=== PATIENT | female | born 1970 | race African-American/Black ===

== ENCOUNTER 2016-11-20 20:59 | Emergency (ER) | payer OTHER ==
[~2016-11-20] VITALS: Ht 175.3 cm; Wt 105.2 kg
[~2016-11-20 20:59] MED LIST: ALLERGY MED; BUTALB-APAP-CA1 EACH PO; DIFLUCAN150 MG PO; FLEXERIL PO; HYDROCODONE-AP1 EAC6 PO; NAPROSYN500 MG PO; NOHOMEMEDICATIONS; NORTRIPTYLINE H10 M1 PO; TOPAMAX 25 MG T25 M1 PO; TOPAMAX100 MG PO; TUSSIONEX PENN473 ML PO; ULTRAM 50MG TAB50 MG PO; ZPAK PO
[2016-11-20] MEDS ORDERED: ADIPEX-P37.5 MG PO (21:24)
[2016-11-20 21:29] LABS: URINE BILIRUBIN NEGATIVE (Negative); URINE BLOOD NEGATIVE (Negative); URINE COLOR YELLOW; URINE GLUCOSE-RANDOM* NEGATIVE (Negative); URINE KETONES NEGATIVE (Negative); URINE LEUKOCYTES-REFLEX NEGATIVE (Negative); URINE PROTEIN (DIPSTICK) NEGATIVE (Negative); URINE SPECIFIC GRAVITY 1.025 (1.003-1.035); URINE UROBILINOGEN 0.2 E.U./dl (0.2-1.0)
[2016-11-20 21:46] LABS: HEMATOCRIT 21.4 % (37.0-47.0); MCH 17.3 pg (26.0-34.0); MCHC 31.5 g/dL (28.0-37.0); MCV 55.1 fL (80.0-100.0); PLATELET COUNT 139 thou/uL (150-400); RBC 3.88 mil/uL (4.20-5.00); RDW 19.3 % (10.5-14.5); WBC 7.7 thou/uL (4.0-11.0)
[2016-11-20 21:47] LABS: MANUAL DIFF YES
[2016-11-20 21:52] LABS: CALCIUM 8.8 mg/dL (8.5-10.1); CREATININE 1.1 mg/dL (0.6-1.0); POTASSIUM 3.2 mmol/L (3.5-5.1)
[2016-11-20 21:53] LABS: HEMOGLOBIN 6.7 gm/dL (12.0-15.0)
[2016-11-20 22:16] LABS: ABSOLUTE NEUTROPHILS 5.1 thou/uL (1.4-8.2); METAMYELOCYTES 8 %; MYELOCYTES 6 %; PROMYELOCYTES 1 %; TOTAL CELL COUNT 100
[2016-11-20 22:17] LABS: ANISOCYTOSIS 3+; HYPOCHROMASIA 3+
[2016-11-20 22:18] LABS: MICROCYTES 3+; SCHISTOCYTES 2+
[2016-11-20] MEDS ORDERED: NORCO 5-325 TA1 EACH PO (22:48)
[2016-11-20] MEDS ORDERED: IRON325 PO (22:48)
[2016-11-20 23:17] VITALS: BP 127/81
== END 2016-11-20 23:18 | disposition home or self-care (01) ==
LOC: ER 20:59
PROVIDERS: Emergency Medicine
DX: M54.5 Low back pain (principal); D64.9 Anemia, unspecified; G43.909 Migraine, unspecified, not intractable, without status migrainosus

== ENCOUNTER → 2016-11-25 | Outpatient (CLI) | payer OTHER ==
[~2016-11-25] MED LIST changes: +ADIPEX-P37.5 MG PO; +IRON325 PO; +NORCO 5-325 TA1 EACH PO
[2016-11-25 17:01] LABS: ABSOLUTE RETIC COUNT 0.2761 10^6/uL; HEMATOCRIT 27.8 % (37.0-47.0); MCH 19.9 pg (26.0-34.0); MCHC 32.5 g/dL (28.0-37.0); MCV 61.4 fL (80.0-100.0); OBSERVED RETIC COUNT 6.09 % (0.6-2.6); PLATELET COUNT 139 thou/uL (150-400); RBC 4.53 mil/uL (4.20-5.00); RDW 30.2 % (10.5-14.5); WBC 5.6 thou/uL (4.0-11.0)
[2016-11-25 17:03] LABS: MANUAL DIFF YES
[2016-11-25 17:09] LABS: CREATININE 1.2 mg/dL (0.6-1.0); POTASSIUM 3.7 mmol/L (3.5-5.1)
[2016-11-25 17:13] LABS: ALBUMIN 3.6 g/dL (3.4-5.0); TOTAL BILIRUBIN 0.8 mg/dL (<0.1-1.0); TOTAL PROTEIN 6.9 g/dL (6.4-8.2)
[2016-11-25 17:19] LABS: APTT 28.9 Seconds (24.5-32.8); PROTIME 10.8 Seconds (9.3-11.4)
[2016-11-25 18:22] LABS: ABSOLUTE NEUTROPHILS 3.9 thou/uL (1.4-8.2); ATYPICAL LYMPHS 1 %; METAMYELOCYTES 2 %; MYELOCYTES 2 %; TOTAL CELL COUNT 100
[2016-11-25 18:23] LABS: ANISOCYTOSIS 1+; MICROCYTES 1+
== END ==
LOC: RAD 15:39
DX: M54.89 Other dorsalgia (principal)

== ENCOUNTER → 2016-12-06 | Outpatient (CLI) | payer OTHER ==
[~2016-12-06] MED LIST changes: +FOLIC ACID1 MG PO; +OXYCONTIN10 M1 PO
[2016-12-06 16:07] LABS: ABSOLUTE RETIC COUNT 0.0871 10^6/uL; HEMATOCRIT 28.9 % (37.0-47.0); HEMOGLOBIN 9.2 gm/dL (12.0-15.0); MCH 20.8 pg (26.0-34.0); MCHC 31.9 g/dL (28.0-37.0); MCV 65.2 fL (80.0-100.0); OBSERVED RETIC COUNT 1.97 % (0.6-2.6); PLATELET COUNT 286 thou/uL (150-400); RBC 4.43 mil/uL (4.20-5.00); RDW 31.3 % (10.5-14.5); WBC 4.9 thou/uL (4.0-11.0)
[2016-12-06 16:10] LABS: MANUAL DIFF YES
[2016-12-06 16:26] VITALS: BP 128/84
[2016-12-06 16:28] LABS: ALBUMIN 3.6 g/dL (3.4-5.0); CALCIUM 8.7 mg/dL (8.5-10.1); CREATININE 1.1 mg/dL (0.6-1.0); POTASSIUM 4.2 mmol/L (3.5-5.1); TOTAL BILIRUBIN 0.4 mg/dL (<0.1-1.0); TOTAL PROTEIN 6.7 g/dL (6.4-8.2)
[2016-12-06 16:36] LABS: ABSOLUTE NEUTROPHILS 2.9 thou/uL (1.4-8.2); ANISOCYTOSIS 2+; HYPOCHROMASIA 1+; MICROCYTES 1+; TOTAL CELL COUNT 100
[2016-12-06 17:41] VITALS: BP 137/82
== END ==
LOC: OPONC 13:55
DX: D57.40 Sickle-cell thalassemia without crisis (principal); N92.0 Excessive and frequent menstruation with regular cycle
CPT/HCPCS: 95000

== ENCOUNTER → 2016-12-12 | Outpatient (CLI) | payer OTHER ==
[2016-12-12 10:41] VITALS: BP 130/79
== END ==
LOC: OPONC 06:22
DX: D50.0 Iron deficiency anemia secondary to blood loss (chronic) (principal); D57.40 Sickle-cell thalassemia without crisis
CPT/HCPCS: 95000

== ENCOUNTER → 2016-12-19 | Outpatient (CLI) | payer OTHER ==
[2016-12-19 10:47] VITALS: BP 137/85
[2016-12-19 12:18] VITALS: BP 131/95
== END ==
LOC: OPONC 06:20
DX: D50.9 Iron deficiency anemia, unspecified (principal); N92.0 Excessive and frequent menstruation with regular cycle; D57.40 Sickle-cell thalassemia without crisis
CPT/HCPCS: 95000; 95001

== ENCOUNTER → 2017-04-22 | Outpatient (CLI) | payer OTHER ==
[2017-04-22 11:52] VITALS: BP 142/84
[2017-04-22 14:40] VITALS: BP 145/88
== END ==
LOC: OPONC 04-21 09:53
DX: D50.9 Iron deficiency anemia, unspecified (principal)
CPT/HCPCS: 95000; 95001

== ENCOUNTER → 2017-04-25 | Outpatient (CLI) | payer OTHER ==
[2017-04-25 10:55] VITALS: BP 130/78
[2017-04-25 12:46] VITALS: BP 141/78
== END ==
LOC: OPONC 02:33
DX: D50.9 Iron deficiency anemia, unspecified (principal)
CPT/HCPCS: 95000; 95001

== ENCOUNTER → 2017-10-10 | Outpatient (CLI) | payer OTHER ==
[~2017-10-10] MED LIST changes: +PREDNISONE 20 M20 MG PO
[2017-10-10 14:13] LABS: ABSOLUTE NEUTROPHILS 4.9 thou/uL (1.4-8.2); BASOPHILS 0.5 % (0.0-2.0); EOSINOPHILS 1.7 % (0.0-3.0); HEMATOCRIT 32.9 % (37.0-47.0); HEMOGLOBIN 10.5 gm/dL (12.0-15.0); LYMPHOCYTES 19.4 % (24.0-44.0); MCH 22.5 pg (26.0-34.0); MCHC 31.9 g/dL (28.0-37.0); MCV 70.5 fL (80.0-100.0); MONOCYTES 5.8 % (1.0-8.0); PLATELET COUNT 278 thou/uL (150-400); POLYS 72.6 % (36.0-66.0); RBC 4.66 mil/uL (4.20-5.00); RDW 18.2 % (10.5-14.5); WBC 6.8 thou/uL (4.0-11.0)
[2017-10-10 14:25] LABS: % SATURATION 8 % (20-39); IRON 31 ug/dL (50-170); TIBC 388 ug/dL (250-450)
[2017-10-10 14:45] LABS: ANISOCYTOSIS 2+; PLATELET ESTIMATE NORMAL
[2017-10-10 14:46] LABS: LARGE PLATELETS FEW; MICROCYTES 1+
[2017-10-10 14:47] LABS: HYPOCHROMASIA 1+
[2017-10-10 14:54] LABS: LIPASE 159 U/L (73-393); TROPONIN-I < 0.04 ng/mL (<0.06)
== END ==
LOC: ULTRA 12:25
DX: D50.9 Iron deficiency anemia, unspecified (principal); R10.32 Left lower quadrant pain; R10.31 Right lower quadrant pain

== ENCOUNTER → 2017-10-17 | Outpatient (CLI) | payer OTHER ==
[~2017-10-17] MED LIST changes: +HYDROCHLOROTH12.5 M2 PO; +INDERAL LA 80 M80 M1 PO; +LOSARTAN-HCTZ1 EACH PO; +OXYCODONE-ACET1 EACH PO; +VALIUM5 MG PO
[2017-10-17 11:15] VITALS: BP 126/86
[2017-10-17 12:30] VITALS: BP 138/103
== END ==
LOC: OPONC 11:04
DX: D50.0 Iron deficiency anemia secondary to blood loss (chronic) (principal)
CPT/HCPCS: 95000; 95113

== ENCOUNTER → 2017-10-20 | Outpatient (CLI) | payer OTHER ==
[2017-10-20 08:25] VITALS: BP 125/81
== END ==
LOC: OPONC 01:53
DX: D50.0 Iron deficiency anemia secondary to blood loss (chronic) (principal)
CPT/HCPCS: 95000

== ENCOUNTER → 2017-12-03 | Outpatient (CLI) | payer OTHER ==
--- NOTE | ~2017-12-03 | 2DMMODE ---
[facility] [employer] [place] [address] 2 D/M-MODE ECHOCARDIOGRAM Name: OSCAR CONNER REZA Room #: REG [facility]Jj#: [id number] Admission: 12/03/17 Attend Phys: Iraida Deluca Discharge: Date of : 70 Date of Service: 12/03/17 1603 Report #: [id number] THIS REPORT FOR: //name// APPROVED REPORT Study performed: 12/03/2017 15:13:58 EXAM: Comprehensive 2D, Doppler, and color-flow Echocardiogram Patient Location: Out-Patient BSA: 2.35 HR: 66 bpm Rhythm: NSR Other Information Study Quality: Adequate Indications Chest pain. Hx: CHF 2D Dimensions RVDd: 37.52 mm LVEF(%): 70.19 (>50%) IVSd: 11.33 (7-11mm) LVOT Diam: 21.00 (18-24mm) LVDd: 47.73 mm PWd: 9.53 (7-11mm) Ascending Ao: 32.97 (22-36mm) LVDs: 28.79 (25-40mm) Aortic Root: 31.91 mm Palmer's LVEF: 70.19 % Volumes Left Atrial Volume (Systole) Single Plane 4CH: 52.89 mL Single Plane 2CH: 48.38 mL LA ESV Index: 23.00 mL/m2 Aortic Valve AoV Peak Aubrey.: 1.56 m/s AO Peak Gr.: 9.79 mmHg LVOT Max P.75 mmHg LVOT Max V: 1.56 m/s HESHAM Vmax: 3.46 cm2 Mitral Valve E/A Ratio: 1.5 MV Decel. Time: 240.25 ms MV E Max Aubrey.: 1.02 m/s [facility] [address] [place] [address] 2 D/M-MODE ECHOCARDIOGRAM Name: OSCAR CONNER [facility] Room #: REG [facility].#: [id number] Admission: 12/03/17 Attend Phys: Iraida Deluca Discharge: Date of : 70 Date of Service: 12/03/17 1603 Report #: [id number] MV A Aubrey.: 0.68 m/s MV PHT: 69.67 ms IVRT: 78.43 ms Pulmonary Valve PV Peak Aubrey.: 1.14 m/s PV Peak Gr.: 5.19 mmHg Tricuspid Valve TR Peak Aubrey.: 2.20 m/s RAP Estimate: 5.00 mmHg TR Peak Gr.: 19.44 mmHg PA Pressure: 24.00 mmHg Left Ventricle The left ventricle is normal size. There is normal LV segmental wall motion. There is normal left ventricular wall thickness. Left ventricular systolic function is normal. LVEF is 55-60%. Mild diastolic dysfunction is present (impaired relaxation pattern). Right Ventricle The right ventricle is normal size. The right ventricular systolic function is normal. Atria The left atrium size is normal. The right atrium size is normal. Aortic Valve The aortic valve is normal in structure. Trace aortic regurgitation. There is no aortic valvular stenosis. Mitral Valve The mitral valve is normal in structure. Trace mitral regurgitation. No evidence of mitral valve stenosis. Tricuspid Valve The tricuspid valve is normal in structure. Trace tricuspid regurgitation. Estimated PAP is 25mmHg. Pulmonic Valve The pulmonary valve is normal in structure. Trace pulmonic regurgitation. Great Vessels The aortic root is normal in size. The ascending aorta is normal in size. IVC is normal in size and collapses >50% with [facility] [address] [place] [address] 2 D/M-MODE ECHOCARDIOGRAM Name: UBALDOOSCAR [facility] Room #: REG Princess#: [id number] Admission: 12/03/17 Attend Phys: Iraida Deluca Discharge: Date of : 70 Date of Service: 12/03/17 1603 Report #: [id number] inspiration. Pericardium There is no pericardial effusion. <Conclusion> The left ventricle is normal size. LVEF is 55-60%. The aortic valve is normal in structure. Trace aortic regurgitation. The mitral valve is normal in structure. Trace mitral regurgitation. The tricuspid valve is normal in structure. Trace tricuspid regurgitation. Estimated PAP is 25mmHg. The pulmonary valve is normal in structure. Trace pulmonic regurgitation. There is no pericardial effusion. <ELECTRONICALLY SIGNED> By: Nathan Brock MD 12/03/17 1603 160 02 Nathan Brock MD /INF
== END ==
LOC: CV 12:23
DX: R07.9 Chest pain, unspecified (principal); I50.9 Heart failure, unspecified

== ENCOUNTER → 2018-06-23 | Outpatient (CLI) | payer OTHER | LOC: MRI 07:21 | DX: M51.37 Other intervertebral disc degeneration, lumbosacral region (principal); M51.27 Other intervertebral disc displacement, lumbosacral region; M12.88 Other specific arthropathies, not elsewhere classified, other specified site; M48.07 Spinal stenosis, lumbosacral region ==

== ENCOUNTER → 2020-02-09 | Outpatient (CLI) | payer OTHER ==
[~2020-02-09] VITALS: Ht 175.3 cm; Wt 93.0 kg
[~2020-02-09] MED LIST changes: +LOSARTAN-HCTZ1 EAC3 PO
--- NOTE | ~2020-02-09 | HPC ---
[facility] [address] [place] [address] PAIN MANAGEMENT CONSULTATION Name: OSCAR CONNER Room #: REG AMANDO Kumari.#: [id number] Admission: 02/09/20 Attend Phys: Delroy Summers DO Discharge: Date of : 70 Report #: [id number] THIS REPORT FOR: cc: Leslye Rosado MD,Delroy Barksdale MD, DO ~ CC: Delroy Rosado DATE OF SERVICE: 02/09/2020 REFERRING PHYSICIAN: Leslye Rosado M.D. CHIEF COMPLAINT: Low back pain, right lower extremity pain with paresthesias. HISTORY OF PRESENT ILLNESS: As you know, the patient is a 49-year-old female who reports longstanding history of low back pain that just recently has changed from low back symptoms exclusively to low back pain, right lower extremity pain. The patient indicates her pain began as far back as 2014. She denies specific injury or trauma that may have led to symptom development. The patient does report that she was morbidly obese prior to a gastric sleeve being placed in September where she has now lost 55 pounds. Prior to this, she was experiencing continual back pain of recent. She began to experience low back pain with radiation down the right leg. She was discussing her case with her primary care physician who referred the patient to our clinic. The patient indicates today her pain is continuous, constant, rhythmic and transient in its presentation. She describes the pain as shooting, aching, throbbing, sharp, stabbing, numbness and tingling. She places current pain score at 7/10, daily average at 7-10/10, worst pain has been is 10/10. The patient states the pain is exacerbated with getting up and walking, improves with nothing to date. The patient indicates that she has had physical therapy in the past, but this was for other conditions and did not address her low back pain. She states she has tried [id number] medications in the form of anti-inflammatories. She has also been provided Percocet and hydrocodone, which provided only transient pain improvement. She indicates she has not undergone interventional treatments, nor she sought chiropractic manipulation, acupuncture therapy or myofascial release. She has been referred to our service to discuss treatment options for suspected lumbar radiculopathy. PAST MEDICAL HISTORY: 1. Anemia. 2. Hypertension. PAST SURGICAL HISTORY: [facility] [address] [facility] [place] [address] PAIN MANAGEMENT CONSULTATION Name: OSCAR CONNER [facility] Room #: REG AMANDO KumariJj#: [id number] Admission: 02/09/20 Attend Phys: Delroy Summers DO Discharge: Date of : 70 Report #: [id number] 1. section x 2. 2. Gastric sleeve. SOCIAL HISTORY: The patient denies tobacco, IV or illicit drug use. She admits to 1 alcoholic beverage per week. She is employed as a teacher. She is working, not receiving workmen's compensation nor is she trying to obtain discrete benefits. She is not in litigation in regards to pain. She is accompanied by a family member present in room today. REVIEW OF SYSTEMS: Positive for weight change, secondary to gastric sleeve, headaches, nausea, vomiting, constipation, low back pain, right lower extremity pain with paresthesias and anemia. All other review of systems negative per 12-point review of systems other than those listed in history of present illness. Pain impact score 63 of 70 indicating severe interference of daily activities secondary to pain. ALLERGIES: No known drug allergies. CURRENT MEDICATIONS: Losartan/hydrochlorothiazide 100/25 mg dose 1 tab per day. IMAGING: MRI lumbar spine obtained 06/23/2018 shows T12-L1, L1-L2, L2-L3 and L3-L4 unremarkable. L4-L5 shows mild disk change with hypertrophic changes resulting in mild bilateral recess narrowing, left greater than right. No significant nerve root effacement is present in the central canal nor neural foramen. L5-S1 shows mild disk space loss, small central disk protrusion. This does not cause any narrowing of the thecal sac, mild hypertrophic facet degenerative changes without neural foraminal stenosis. There is no new imaging, x-ray or MRI to review this 06/23/2018 MRI. PHYSICAL EXAMINATION: VITAL SIGNS: Blood pressure 117/83, pulse 60, respiratory rate 16 and unlabored. The patient is 100% on room air. Height 5 feet 9 inches tall, weight 205 pounds, BMI calculated 30.3. GENERAL: Well-developed, well-nourished, well-hydrated 49-year-old female, appears her stated age. She is in no acute distress, awake, alert and oriented x 3. Current pain score 7/10. HEENT: Normocephalic, atraumatic. Pupils equal, round and reactive. NEUROLOGIC: Speech fluent. The patient deemed a good historian. LUNGS: Appear clear. There is no audible wheezing or rhonchi. No cough. She is able to complete sentences without difficulty. CARDIOVASCULAR: Regular. No appreciable gallop or rub. ABDOMEN: Soft, nontender. Bowel sounds are present. EXTREMITIES: Show no clubbing, no noted cyanosis. No noted edema. MUSCULOSKELETAL: Lower extremity strength appears equal and symmetrical 5/5, [facility] [address] [place] [address] PAIN MANAGEMENT CONSULTATION Name: OSCAR CONNER Room #: REG AMANDO Quoc.#: [id number] Admission: 02/09/20 Attend Phys: Delroy Summers DO Discharge: Date of : 70 Report #: [id number] intact to light touch from L1 through S2 dermatomes. Seated straight leg raising negative. Supine straight leg raising mildly positive on the right, negative left. Ankle clonus negative. Babinski is negative. Stance is slightly forward flexed the lumbar spine. Full rack stance causes increase in axial back pain. Gait appears normal. Lumbar provocation testing is with slight increase in axial back pain. ASSESSMENT: 1. Possible lumbar radiculopathy. 2. Mildly displaced intervertebral disks at L4-L5 and L5-S1. 3. Facet arthropathy of the lumbar spine. 4. Chronic intractable pain. PLAN: 1. Based on today's physical exam and the history the patient has provided, the description the patient uses in regards to pain as well as the location of symptoms, likely source of the patient's pain would be a lumbar radiculopathy. We have reviewed with the patient the MRI imaging from 2018, which shows only mild changes at the L4-L5 and L5-S1 level without any specific lateralizing feature consistent with right lower extremity radiculopathy. The patient does report that this is a relatively new set of symptoms, it does appear she has some facet arthropathy and this is only mild in nature based on the 2018 information and would not be necessary to undergo any type of treatment, but would be best treated conservatively. The fact the patient is experiencing symptoms radiating down the right leg in what appears to be in L5 distribution would be concerning for changes at the L4-L5 or L5-S1 level. We have discussed this with the patient today. The following was discussed with the treatment options for lumbar radiculopathy that we would propose for this patient. We discussed physical therapy, stretching exercises and core strengthening as a treatment option. This is a very conservative treatment and would provide the patient with good benefit from her axial back pain and may improve the suspected lumbar radiculopathy she is experiencing. We discussed medication management suggestions including nortriptyline, amitriptyline, Cymbalta, Lyrica and gabapentin to assist for the lumbar radicular symptoms. From the mild facet arthropathy changes noted on the imaging study, we would recommend just a nonsteroidal anti-inflammatory on a consistent basis such as meloxicam. We discussed lumbar epidural injection under fluoroscopic guidance to address symptoms radiating down the right leg. We also discussed spinal cord stimulator as an option for treatment and surgical decompression if necessary. After reviewing the risks and benefits of all proposed treatment options, the patient chose to begin with the lumbar epidural injection under fluoroscopic guidance. 2. The patient was advised that due to third democrat payer restrictions, authorization would have to be obtained before the patient could undergo a lumbar epidural injection. Authorization could take anywhere from 4-7 working days. We will begin this process immediately and have the patient return to [address] [address] PAIN MANAGEMENT CONSULTATION Name: OSCAR CONNER REZA Room #: LEONARDO Sánchez#: [id number] Admission: 02/09/20 Attend Phys: Delroy Summers DO Discharge: Date of : 70 Report #: [id number] undergo the first in a series of epidural injections once this authorization has been completed. We will keep the patient apprised of her progress for this authorization and have her return as quickly as possible to undergo the procedure proposed today. 3. No medication changes made at today's visit. The patient will continue current medical therapy as previously prescribed. 4. We will see the patient back in followup visit for the first in a series of lumbar epidural injections once this authorization has been obtained. 5. We wish to thank Dr. Leslye Rosado for the opportunity to see this patient in consultation. We will keep you apprised of response to treatment as we address suspected lumbar radiculopathy involving the low back and right lower extremity. Again, we wish to thank you for the opportunity to see this patient in consultation. By: 1621 [id number] Delroy Summers DO /connie
[2020-02-09 13:43] VITALS: BP 117/83
--- NOTE | 2020-02-09 14:22 | NUR ---
Pain Clinic Assessment: 1. History of Osteoarthritis: BACK History of Rheumatoid Arthritis: Not Applicable 2. Height: 5 ft. 9 in. 175.3 cm. Weight: 205.0 lb. oz. 92.988 kg. Patient's BMI: 30.3 3. Vital Signs: BP: 117/83 Pulse: 60 Resp: 16 Temp: 02 Sat: 100 ECG Mon: 4. Pain Intensity: 7 5. Fall Risk: Dizziness: N Needs help standing or walking: N Fallen in the last 3 months: N Fall risk comments: 6. Patient on Blood Thinner: None 7. History of Hypertension: Y 8. Opioid Therapy greater than 6 weeks: N Opiate Contract Signed: 9. Risk Assessment Tool Provided: LOW RISK 2/3 10. Functional Assessment Tool: 63/70 11. Recreational Drug Use: Never Drug Type: Tobacco Use: Never Smoker Tobacco Type: Amount or Packs/day: How Many Years: Alcohol Use: Yes Frequency: Weekly Quant: 1
== END ==
LOC: PAIN 12-15 06:45
PROVIDERS: ATTEND Anesthesiology Pain Medicine
DX: M51.27 Other intervertebral disc displacement, lumbosacral region (principal); M47.816 Spondylosis without myelopathy or radiculopathy, lumbar region; M79.604 Pain in right leg; M79.605 Pain in left leg; R20.2 Paresthesia of skin; G89.29 Other chronic pain; Z79.899 Other long term (current) drug therapy

== ENCOUNTER 2020-03-13 10:21 | Emergency (ER) | payer OTHER ==
[~2020-03-13] VITALS: Ht 175.3 cm; Wt 92.1 kg
[2020-03-13] MEDS ORDERED: PROTONIX 20 MG20 MG PO (10:33)
[2020-03-13 10:56] LABS: ABSOLUTE NEUTROPHILS 3.1 thou/uL (1.4-8.2); BASOPHILS 0.8 % (0.0-2.0); HEMATOCRIT 40.3 % (37.0-47.0); HEMOGLOBIN 13.1 gm/dL (12.0-15.0); LYMPHOCYTES 23.7 % (24.0-44.0); MCH 25.2 pg (26.0-34.0); MCHC 32.6 g/dL (28.0-37.0); MCV 77.5 fL (80.0-100.0); MONOCYTES 5.8 % (1.0-8.0); PLATELET COUNT 173 thou/uL (150-400); POLYS 67.7 % (36.0-66.0); WBC 4.6 thou/uL (4.0-11.0)
[2020-03-13 10:59] LABS: URINE BILIRUBIN NEGATIVE (Negative); URINE BLOOD TRACE (Negative); URINE CLARITY CLEAR; URINE COLOR YELLOW; URINE GLUCOSE-RANDOM* NEGATIVE (Negative); URINE KETONES NEGATIVE (Negative); URINE LEUKOCYTES-REFLEX NEGATIVE (Negative); URINE NITRITE-REFLEX NEGATIVE (Negative); URINE PROTEIN (DIPSTICK) NEGATIVE (Negative); URINE SPECIFIC GRAVITY 1.015 (1.005-1.035); URINE UROBILINOGEN 0.2 E.U./dl (0.2-1.0)
[2020-03-13 11:00] LABS: CALCIUM 9.7 mg/dL (8.5-10.1); CREATININE 1.1 mg/dL (0.6-1.0); POTASSIUM 3.4 mmol/L (3.5-5.1)
[2020-03-13 11:07] LABS: TOTAL BILIRUBIN 0.7 mg/dL (0.2-1.0); TOTAL PROTEIN 7.8 g/dL (6.4-8.2)
[2020-03-13 11:49] LABS: MAGNESIUM 1.9 mg/dL (1.8-2.4); PHOSPHORUS 3.9 mg/dL (2.5-4.9); TROPONIN-I <0.06 ng/mL (<0.06)
[2020-03-13] MEDS ORDERED: PREDNISONE 20 M20 MG PO (12:17)
[2020-03-13] MEDS ORDERED: TRAMADOL 50 MG50 MG PO (12:17)
[2020-03-13] MEDS ORDERED: NORFLEX100 MG PO (12:17)
[2020-03-13] MEDS ORDERED: MECLIZINE HCL25 M1 PO (12:43)
[2020-03-13 12:49] VITALS: BP 121/85
[2020-03-13 14:01] LABS: LARGE PLATELETS OCCASIONAL
--- NOTE | 2020-03-14 08:23 | EKG ---
[facility] [place] [address] ELECTROCARDIOGRAM REPORT Name: OSCAR CONNER Room #: DEP [facility].#: [id number] Admission: 03/13/20 Attend Phys: Discharge: 03/13/20 Date of : 70 Report #: [id number] THIS REPORT FOR: cc: Leslye Rosado MD, Karla L. 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[facility] : 1970 Requested By: Kirt Feliz Order Number: [id number] MD: Ephraim Gregorio Measurements Intervals [place] Rate: 53 P: 48 CO: 185 QRS: -23 QRSD: 98 T: 26 QT: 433 QTc: 407 Interpretive Statements Sinus rhythm Borderline left axis deviation Poor R wave progression Compared to ECG 06/14/2017 08:13:45 No significant change was found Electronically Signed On 03-14-2020 8:22:55 CDT by Ephraim Gregorio [email or web address] <ELECTRONICALLY SIGNED> By: Ephraim Gregorio MD, [facility] 03/14/20 0822 1040 1040 Ephraim Gregorio MD, [facility] /EPI
== END 2020-03-13 12:49 | disposition home or self-care (01) ==
LOC: ER 10:21
PROVIDERS: Emergency Medicine
DX: D50.9 Iron deficiency anemia, unspecified (principal); R42 Dizziness and giddiness; G44.209 Tension-type headache, unspecified, not intractable; M54.5 Low back pain; M26.622 Arthralgia of left temporomandibular joint; R07.89 Other chest pain; Z98.84 Bariatric surgery status; G43.909 Migraine, unspecified, not intractable, without status migrainosus; Z98.890 Other specified postprocedural states; Z79.899 Other long term (current) drug therapy

== ENCOUNTER → 2020-05-02 | Outpatient (CLI) | payer OTHER ==
[~2020-05-02] VITALS: Ht 175.3 cm; Wt 92.9 kg
[~2020-05-02] MED LIST changes: +MECLIZINE HCL25 M1 PO; +NORFLEX100 MG PO; +PROTONIX 20 MG20 MG PO; +TRAMADOL 50 MG50 MG PO
[2020-05-02 09:43] VITALS: BP 122/92
--- NOTE | 2020-05-02 10:04 | NUR ---
Pain Clinic Assessment: 1. History of Osteoarthritis: BACK History of Rheumatoid Arthritis: Not Applicable 2. Height: 5 ft. 9 in. 175.3 cm. Weight: 204.8 lb. oz. 92.897 kg. Patient's BMI: 30.2 3. Vital Signs: BP: 122/92 Pulse: 56 Resp: 16 Temp: 02 Sat: 100 ECG Mon: 4. Pain Intensity: 7 5. Fall Risk: Dizziness: N Needs help standing or walking: N Fallen in the last 3 months: N Fall risk comments: 6. Patient on Blood Thinner: None 7. History of Hypertension: Y 8. Opioid Therapy greater than 6 weeks: N Opiate Contract Signed: 9. Risk Assessment Tool Provided: LOW RISK 2 10. Functional Assessment Tool: 63/70 11. Recreational Drug Use: Never Drug Type: Tobacco Use: Never Smoker Tobacco Type: Amount or Packs/day: How Many Years: Alcohol Use: No Frequency: Quant:
--- NOTE | 2020-05-02 10:04 | NUR ---
Answering YES to this query will charge for the Pneumococcal Vaccine. Please answer YES ONLY if administering vaccine at this time.
--- NOTE | 2020-05-02 16:14 | HPC ---
[facility] [place] [address] PAIN MANAGEMENT CONSULTATION Name: OSCAR CONNER Room #: REG AMANDO Princess#: [id number] Admission: 05/02/20 Attend Phys: Delroy Summers DO Discharge: Date of : 70 Report #: [id number] CC: Delroy Rosado MD DATE OF SERVICE: 05/02/2020 CHIEF COMPLAINT: Low back pain, right lower extremity pain with paresthesias. HISTORY OF PRESENT ILLNESS: As you know, the patient is a pleasant 49-year-old female with longstanding history of low back pain and right lower extremity pain with paresthesias. The patient reports pain as far back as 2014. We saw the patient in consultation per the request of Dr. Leslye Rosado on 02/09/2020, where we discussed treatment options for lumbar radiculopathy. These treatment options included physical therapy with stretching exercises with a concerted effort at weight loss. We discussed medication management utilizing neuropathic pain medication such as amitriptyline, nortriptyline, Cymbalta, Lyrica or gabapentin. We discussed lumbar epidural injection for which the patient was referred to our clinic. We also discussed surgical options with the patient, though given the lack of significant findings in the lumbar region, we would not recommend those options of treatment. After reviewing the risks and benefits of all proposed treatment options, the patient chose to consider each of the options carefully and then call us when she was ready to discuss future treatment. She returns today in followup visit on 05/02/2020 to undergo lumbar epidural injection under fluoroscopic guidance. She is indicating a pain level today of 7/10. She returns today stating no new injury, no new trauma or any changes in medical history that may have led to continuation of her ongoing pain. ALLERGIES: No known drug allergies. CURRENT MEDICATIONS: Tramadol, pantoprazole, losartan, hydrochlorothiazide. SOCIAL HISTORY: The patient denies tobacco, IV or illicit drug use. Admits to 1 alcoholic beverage per week. 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 IMAGING: No new imaging available. PHYSICAL EXAMINATION: VITAL SIGNS: Blood pressure 122/92, pulse 56, respiratory rate 16 and unlabored. The patient is 100% on room air. Height 5 feet 9 inches tall, weight 204.8 pounds, BMI calculated 30.2. GENERAL: Well-developed, well-nourished, well-hydrated, 49-year-old female appearing stated age, pain is rated today at 7/10. HEENT: Normocephalic, atraumatic. Pupils equal, round and reactive. EXTREMITIES: Show no clubbing, no cyanosis. No appreciable edema. MUSCULOSKELETAL: Lower extremity strength equal and symmetrical 5/5, intact to light touch from L1 through S2 dermatomes. Seated straight leg raising negative. Supine straight leg raising shows mildly positive on the right, negative left. Ankle clonus negative. Babinski is negative. Gait is normal. ASSESSMENT: 1. Possible lumbar radiculopathy. 2. Mildly displaced intervertebral disks at L4-L5 and L5-S1. 3. Facet arthropathy of the lumbar spine. 4. Chronic intractable pain. PLAN: 1. The patient returns today in followup visit, now requesting to undergo lumbar epidural injection under fluoroscopic guidance. She has reviewed the risks and the benefits of all proposed treatment options and chose to undergo the procedure today. The patient was advised the risks of the lumbar epidural injection, which include, but are not necessarily limited to bleeding, bruising, infection, worsening pain, no relief of pain, also risk of temporary or permanent muscle weakness, temporary or permanent nerve damage, possible paralysis, post-dural puncture headache and . The patient states understood and wished to proceed. 2. No medication changes made at today's visit. The patient will continue current medical therapy as prior prescribed. 3. We will see the patient back in followup visit on an as needed basis for possible next in the series of lumbar epidural injections. PROCEDURE NOTE: DESCRIPTION OF PROCEDURE: L5-S1 right parasagittal epidural steroid injection under fluoroscopic guidance. This is the first procedure of the first series that the patient is undergoing. After obtaining written consent, the patient was taken back to the fluoroscopy suite, placed in a prone position with pillow under the abdomen to decrease lumbar lordosis. The skin overlying the lumbosacral area was then prepped and draped in aseptic fashion. The L5-S1 vertebral interspace was then identified by AP fluoroscopy. The skin and subcutaneous tissue overlying the target site of injection was anesthetized with 3 mL 1% lidocaine. A 20-gauge 3-1/2 inch Tuohy needle was then advanced under fluoroscopic guidance towards the epidural space using a right parasagittal approach. The epidural space was identified using loss of resistance to air technique. After negative aspiration for heme or cerebrospinal fluid, a total of 1 mL of Omnipaque was injected. A lumbar epidurogram was confirmed using both AP and lateral fluoroscopy. After negative aspiration for heme or cerebrospinal fluid, 5 mL of solution containing 2 mL of 40 mg per mL, 80 mg total triamcinolone along with 3 mL lidocaine 1% was injected in increments. Contrast spread was noted in post epidural space. The needle was then retracted approximately half way and needle tract flushed with 1 mL of 1% lidocaine. Needle was then removed. There were no apparent sensory or motor deficits in the lower extremity following the procedure. A sterile bandage was placed over the injection site. The heart rate, pulse, oximetry and blood pressure were continuously monitored after the procedure. There were no apparent complications. The patient tolerated the procedure well and was carefully escorted to the recovery room in stable condition. There were no apparent complications. After meeting discharge criteria, the patient was then discharged home. <ELECTRONICALLY SIGNED> By: Delroy Summers DO 05/02/20 1614 1309 1513 Delroy Summers DO /nt
== END | disposition home or self-care (01) ==
LOC: PAIN 06:53
PROVIDERS: ATTEND Anesthesiology Pain Medicine
DX: M51.26 Other intervertebral disc displacement, lumbar region (principal); M47.896 Other spondylosis, lumbar region; G89.29 Other chronic pain; Z98.890 Other specified postprocedural states; Z79.899 Other long term (current) drug therapy

== ENCOUNTER → 2020-06-06 | Outpatient (CLI) | payer OTHER ==
[~2020-06-06] VITALS: Ht 175.3 cm; Wt 92.5 kg
[~2020-06-06] MED LIST changes: +LYRICA 75 MG CA75 MG PO
[2020-06-06 12:33] VITALS: BP 1125/86
--- NOTE | 2020-06-06 12:40 | NUR ---
Pain Clinic Assessment: 1. History of Osteoarthritis: BACK History of Rheumatoid Arthritis: Not Applicable 2. Height: 5 ft. 9 in. 175.3 cm. Weight: 204.0 lb. oz. 92.534 kg. Patient's BMI: 30.1 3. Vital Signs: BP: 1125/86 Pulse: 69 Resp: 16 Temp: 02 Sat: 100 ECG Mon: 4. Pain Intensity: 6 5. Fall Risk: Dizziness: Y Needs help standing or walking: N Fallen in the last 3 months: N Fall risk comments: 6. Patient on Blood Thinner: None 7. History of Hypertension: Y 8. Opioid Therapy greater than 6 weeks: N Opiate Contract Signed: 9. Risk Assessment Tool Provided: LOW RISK 2 10. Functional Assessment Tool: 63/70 11. Recreational Drug Use: Never Drug Type: Tobacco Use: Never Smoker Tobacco Type: Amount or Packs/day: How Many Years: Alcohol Use: No Frequency: Quant:
--- NOTE | 2020-06-07 12:16 | HPC ---
[facility] [place] [address] PAIN MANAGEMENT CONSULTATION Name: OSCAR CONNER Room #: REG AMANDO KhouryJjAdrianaJj#: [id number] Admission: 06/06/20 Attend Phys: Delroy Summers DO Discharge: Date of : 70 Report #: [id number] THIS REPORT FOR: cc: Leslye Rosado MD, Karla L. MD Johnson, James E. DO ~ DATE OF SERVICE: 06/06/2020 CHIEF COMPLAINT: Low back pain, right lower extremity pain with paresthesias. HISTORY OF PRESENT ILLNESS: As you know, the patient is a very pleasant 49-year-old female with longstanding history of low back pain, right lower extremity pain with paresthesias. She reports pain as far back as 2014. She was seen in consultation per the request of Dr. Leslye Rosado on 02/09/2020 where we discussed treatment options for lumbar radiculopathy. She underwent a lumbar epidural injection at the followup visit of 05/02/2020. She reports about a 60% improvement in overall pain lasting through about 2-week timeframe. She was able to go about activities of daily living without significant pain interference. She is pleased with response to the injection, returning today to undergo the next in the series. She is placing her current pain score 6/10. She is denying any changes in medical management since our last visit. There has been no new injury or trauma that has led to recurrence of symptoms. She returns today for second in series of epidural injections. ALLERGIES: No known drug allergies. CURRENT MEDICATIONS: Tramadol, pantoprazole, losartan, hydrochlorothiazide. SOCIAL HISTORY: The patient denies tobacco, IV or illicit drug use. Admits to 1 alcoholic beverage per week. She is employed as a teacher, working, not receiving workmen's compensation. She is accompanied by her daughter present in room today. IMAGING: No new imaging available. PHYSICAL EXAMINATION: VITAL SIGNS: Blood pressure 112/86, pulse is 69, respiratory rate 16 and unlabored. The patient is 100% on room air. Height 5 feet 9 inches tall, weight 209 pounds, BMI calculated at 30.1. GENERAL: Well-developed, well-nourished, well-hydrated 49-year-old female appearing stated age, pain is rated today around 6/10. HEENT: Normocephalic, atraumatic. Pupils equal, round and reactive. Speech fluent. The patient is wearing a mask in compliance with COVID-19 regulations. EXTREMITIES: Show no clubbing, no cyanosis, and no edema. MUSCULOSKELETAL: Lower extremity strength appears symmetrical 5/5[place] [address] PAIN MANAGEMENT CONSULTATION Name: OSCAR CONNER [facility] Room #: REG AMANDO Sánchez#: [id number] Admission: 06/06/20 Attend Phys: Delroy Summers DO Discharge: Date of : 70 Report #: [id number] intact to light touch from L1 through S2 dermatomes. Seated straight leg raising negative. Supine straight leg raising mildly positive again on the right side, negative left. Ankle clonus negative. Gait appears only slightly forward flexed at the lumbar spine, actual gait normal and tandem walk is normal. ASSESSMENT: 1. Mild lumbar radiculopathy. 2. Mild displaced intervertebral disks at L4-L5 and L5-S1. 3. Facet arthropathy of the lumbar spine. 4. Chronic intractable pain. PLAN: 1. The patient returns today in followup visit having noted about a 60% improvement in overall pain with the epidural injection provided at last visit. Unfortunately, the injection only gave little less than 2 weeks of improvement in symptoms. She was able to go about the majority of activities of daily living without significant pain interference and actually does note that she has improvement even now from the epidural injection. She has returned today requesting next in the series of epidural injections. We have obtained authorization for the patient to undergo the procedure today. She has been advised risks and benefits, states understood and wished to proceed. 2. We will start the patient on Lyrica for neuropathic pain control. She has been on gabapentin in the past and apparently failed, but this would appear to be due to subtherapeutic dosing. There were no noted side effects, but also no noted analgesic effects. I had to start the patient on Lyrica 75 mg dose. She will start 1 tab p.o. at bedtime for 5 nights, increase to 2 tabs p.o. at bedtime for 5 nights. If no improvement in symptoms, no side effects of sleepiness, disorientation or confusion, then increase to 1 tab in the morning, 2 tablets at night for 5 more days. If again no improvement in symptoms, no side effects, then escalate to 150 twice a day. The patient was given #90 tablets to begin the titration of the Lyrica. If she has questions or concerns, contact our clinic. Prescription sent via e-scribe to local pharmacy. 3. We plan to see the patient back in followup visit on an as needed basis for the third in the series of lumbar epidural injections. We are hopeful the patient will see good and prolonged benefit with the injection today. This in conjunction with medication management should provide improved analgesic therapy. PROCEDURE NOTE DESCRIPTION OF PROCEDURE: L5-S1 right paramedian epidural steroid injection under fluoroscopic guidance. This is the second procedure of the first series that the patient is undergoing. [facility] [address] [place] [address] PAIN MANAGEMENT CONSULTATION Name: OSCAR CONNER REZA Room #: REG CLMission Bernal CampusJennifer.#: [id number] Admission: 06/06/20 Attend Phys: Delroy Summers DO Discharge: Date of : 70 Report #: [id number] After obtaining written consent, the patient was taken back to the fluoroscopy suite, placed in a prone position with pillow under the abdomen to decrease lumbar lordosis. The skin overlying the lumbosacral area was then prepped and draped in aseptic fashion. The L5-S1 vertebral interspace was then identified by AP fluoroscopy. The skin and subcutaneous tissue overlying the target site of injection was anesthetized with 3 mL 1% lidocaine. A 20-guage 3-1/2 inch Tuohy needle was then advanced under fluoroscopic guidance towards the epidural space using a right paramedian approach. The epidural space was identified using loss of resistance to air technique. After negative aspiration for heme or cerebrospinal fluid, a total of 1 mL of Omnipaque was injected. A lumbar epidurogram was confirmed using both AP and lateral fluoroscopy. After negative aspiration for heme or cerebrospinal fluid, 5 mL of solution containing 2 mL 40 mg per mL, 80 mg total triamcinolone along with 3 mL of lidocaine 1% was injected in increments. Contrast spread was noted from posterior epidural space. The needle was then retracted approximately half way and needle tract flushed with 1 mL of 1% lidocaine. Needle was then removed. There were no apparent sensory or motor deficits in the lower extremity following the procedure. A sterile bandage was placed over the injection site. The heart rate, pulse, oximetry and blood pressure were continuously monitored after the procedure. There were no apparent complications. The patient tolerated the procedure well and was carefully escorted to the recovery room in stable condition. There were no apparent complications. After meeting discharge criteria, the patient was then discharged home. <ELECTRONICALLY SIGNED> By: Delroy Summers DO 06/07/20 1216 [id number] [id number] Delroy Summers DO /nt
== END | disposition home or self-care (01) ==
LOC: PAIN 06:47
PROVIDERS: ATTEND Anesthesiology Pain Medicine
DX: M51.16 Intervertebral disc disorders with radiculopathy, lumbar region (principal); M47.26 Other spondylosis with radiculopathy, lumbar region; G89.29 Other chronic pain; Z98.890 Other specified postprocedural states; Z79.899 Other long term (current) drug therapy

== ENCOUNTER → 2020-10-11 | Outpatient (CLI) | payer OTHER ==
[~2020-10-11] VITALS: Ht 175.3 cm; Wt 93.0 kg
[~2020-10-11] MED LIST changes: +EXCEDRIN CAPLE1 EACH PO
[2020-10-11 08:10] VITALS: BP 133/86
--- NOTE | 2020-10-11 08:14 | NUR ---
Pain Clinic Assessment: 1. History of Osteoarthritis: BACK History of Rheumatoid Arthritis: Not Applicable 2. Height: 5 ft. 9 in. 175.3 cm. Weight: 205.0 lb. oz. 92.988 kg. Patient's BMI: 30.3 3. Vital Signs: BP: 133/86 Pulse: 62 Resp: 16 Temp: 02 Sat: 99 ECG Mon: 4. Pain Intensity: 7 5. Fall Risk: Dizziness: N Needs help standing or walking: N Fallen in the last 3 months: N Fall risk comments: 6. Patient on Blood Thinner: None 7. History of Hypertension: Y 8. Opioid Therapy greater than 6 weeks: N Opiate Contract Signed: 9. Risk Assessment Tool Provided: LOW RISK 2 10. Functional Assessment Tool: 63/70 11. Recreational Drug Use: Never Drug Type: Tobacco Use: Never Smoker Tobacco Type: Amount or Packs/day: How Many Years: Alcohol Use: No Frequency: Quant:
--- NOTE | 2020-10-11 11:25 | HPC ---
[facility] [place] [address] PAIN MANAGEMENT CONSULTATION Name: OSCAR CONNER Room #: REG AMANDO BruceAdrianaJj#: [id number] Admission: 10/11/20 Attend Phys: Delroy Summers DO Discharge: Date of : 70 Report #: [id number] THIS REPORT FOR: cc: Leslye Rosado MD, Karla L. MD Johnson, James E. DO ~ DATE OF SERVICE: 10/11/2020 CHIEF COMPLAINT: Low back pain, right lower extremity pain with paresthesias. HISTORY OF PRESENT ILLNESS: As you know, the patient is a very pleasant 50-year-old female with longstanding history of low back pain, right lower extremity pain with paresthesias. She reports pain as far back as 2014. We saw the patient in consultation per the request of Dr. Leslye Rosado on 02/09/2020 diagnosed with a possible lumbar radiculopathy, facet arthropathy and mildly displaced lumbar intervertebral disk at 2 levels. This was based on imaging studies obtained in 2018. She underwent a lumbar epidural injection under fluoroscopic guidance at our return visit of 05/02/2020 for which she reported improvement in symptoms. She underwent a second epidural injection on 06/06/2020 where she reports that her pain intensified. She states she received no benefit with this procedure. She is now placing pain score 7/10. She returns today in followup visit to discuss treatment options. She does not wish to undergo further injections as her symptoms reportedly were worsened by the injection in June. She denied any new injury, trauma or any changes in medical history since our last visit. ALLERGIES: No known drug allergies. CURRENT MEDICATIONS: [place]-3 fish oil 1 tab per day, allopurinol 100 mg once a day, pregabalin 75 mg twice a day (not being taking currently), oxycodone/acetaminophen 10/325 one tab every 8 hours p.r.n. for pain, meloxicam 7.5 mg b.i.d. SOCIAL HISTORY: The patient reports she is a nonsmoker. Denies IV or illicit drug use. Admits to 1 alcoholic beverage per week. 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 She is accompanied by her present in room today. IMAGING: No new imaging available. PHYSICAL EXAMINATION: VITAL SIGNS: Blood pressure 133/86, pulse 62, respiratory rate 16 and unlabored. The patient is 99% on room air. Height 5 feet 9 inches tall, weight 205 pounds, BMI calculated 30.3. GENERAL: Well-developed, well-nourished, well-hydrated 50-year-old female, [place] [address] PAIN MANAGEMENT CONSULTATION Name: OSCAR CONNER REZA Room #: REG CLSuzi Sánchez#: [id number] Admission: 10/11/20 Attend Phys: Delroy Summers DO Discharge: Date of : 70 Report #: [id number] appearing stated age, pain is rated today at 7/10. HEENT: Normocephalic, atraumatic. Pupils equal, round, and responsive. The patient is wearing a mask in compliance with COVID-19. EXTREMITIES: Show no clubbing, no cyanosis, no edema. MUSCULOSKELETAL: Lower extremity strength remains symmetrical 5/5. Intact to light touch from L1 through S2 dermatomes. Seated straight leg raising negative. Supine straight leg raising is mildly positive on the right, negative left. Muscle bulk and tone is symmetrical in comparing lower extremities. Ankle clonus negative. Babinski is negative. Gait is normal. ASSESSMENT: 1. Mild lumbar radiculopathy. 2. Mildly displaced lumbar intervertebral disk at L4-L5 and L5-S1. 3. Facet arthropathy of the lumbar spine. 4. Chronic intractable pain. PLAN: 1. The patient returns today in followup visit having indicated that the previous epidural injections provided in June led to no improvement in symptoms. In fact, she reports exacerbation of symptoms. We would recommend that she no longer undergo injection therapy given the lack of efficacy and possible perception of worsening of symptoms. She had contacted our clinic and requested that she be evaluated for a possible medication management. We advised the patient that as of the beginning of the year, we were no longer taking on any new medication management patients. We have a completed schedule of current medication management patients and we were no longer taking on any new opioid or medication management patients. We would certainly provide suggestions to the PCP if they wish to initiate that type of treatment. We did provide her today's appointment to discuss that with her and also other treatment options. The following was discussed with the patient as treatment options that we would recommend. We discussed physical therapy, stretching exercises and core strengthening. I do feel that this is the most efficient way and most effective way of treating the symptoms the patient is experiencing. She has some mild radicular symptom at most, mild displaced lumbar intervertebral disks and some facet arthropathy. I believe core strengthening and physical therapy with mobility will improve the patient's symptoms considerably. We will defer to the primary team if they wish to trial aggressive physical therapy program with this patient. We did discuss that treatment could include neuropathic medications and a consistent nonsteroidal anti-inflammatory. Given the findings on the physical exam and the lack of any significant findings in the lumbar imaging, I would not recommend opioid medication management as they are not considered appropriate chronic treatment options, though we will defer to the primary team if they wish to continue that treatment. We also discussed with the patient spinal cord stimulator as an option and surgical options with the patient if she wishes to [facility] [address] [place] [address] PAIN MANAGEMENT CONSULTATION Name: OSCAR CONNER REZA Room #: REG AMANDO Kumari.#: [id number] Admission: 10/11/20 Attend Phys: Delroy Summers DO Discharge: Date of : 70 Report #: [id number] seek surgical consultation. Those are the remaining treatment options available. 2. If the patient's primary care physician wishes to consider medication management, we would recommend a nonsteroidal anti-inflammatory for baseline pain control that nonsteroidal anti-inflammatory could include either diclofenac sodium twice a day in the extended release formulation or possibly nabumetone 500 mg 3 times a day. Naproxen 500 has shown to be efficacious in patients with chronic axial back pain, all of which have the potential side effects and need to be discussed with the patient. 3. One could consider the initiation of a higher dose of neuropathic medication. The patient reports that she is on Lyrica 75 mg twice a day, but has been advised by my nurse that she is not taking that therapy. This could be escalated all the way up to as high as 450 mg a day. This will provide baseline neuropathic pain control. If this medication is ineffective, one could try Cymbalta, starting at 30 mg dose and escalating every 7 days to 60 mg b.i.d. If this is ineffective or side effects are noted, amitriptyline, nortriptyline can be used typically at night for baseline pain control. They also make a long-acting gabapentin therapy that can be taken once a day such as Gralise and Horizant that can be considered as well. 4. We discussed with the patient her desire for further imaging. I advised the patient that we would not recommend imaging to be done until she has made an appointment with Neurosurgery. Neurosurgery will require imaging within 6 weeks' timeframe of their appointment and we would recommend placing that MRI somewhere about a week or 2 prior to their appointment that way they have the freshest information to review with the patient. In fact, the patient has no appointments and no schedule nor does she have a surgeon, we would not recommend imaging at this time. I will defer to the primary team if they wish to provide further imaging and discuss her surgical options with them, they may do so, but I would recommend that it is close to the surgical timeframe as possible so that freshest information is provided. 5. The patient did seem somewhat disappointed today when discharged. Throughout the entire discussion with the patient today, she was playing solitaire on her phone. She had paid very little attention to our discussion. I did have her in the room with us today, so that he could hear the discussion as well. I am hopeful that the patient understood the discussion and understands the treatment option she has available. She will be discussing with her primary care. We are hopeful the information provided in this dictation will help direct her care. If she is wishing to look towards any future injections, she may return to our clinic, though given the lack of efficacy with the second injection, I would not recommend continuing down this pathway. We will be returning her care to her primary care team with the suggestions in this dictation to help treat her symptoms. <ELECTRONICALLY SIGNED> By: Delroy Summers DO 10/11/20 1125 0843 0904 Delroy Summers DO /nt
== END ==
LOC: PAIN 06:41
PROVIDERS: ATTEND Anesthesiology Pain Medicine
DX: M51.17 Intervertebral disc disorders with radiculopathy, lumbosacral region (principal); M79.604 Pain in right leg; R20.2 Paresthesia of skin; G89.29 Other chronic pain

== ENCOUNTER 2020-11-15 06:31 | Emergency (ER) | payer OTHER ==
[~2020-11-15] VITALS: Ht 175.3 cm; Wt 92.5 kg
[2020-11-15] MEDS ORDERED: OMEPRAZOLE40 MG PO (06:47)
[2020-11-15] MEDS ORDERED: GABAPENTIN600 M1 PO (06:47)
[2020-11-15 07:09] LABS: ABSOLUTE NEUTROPHILS 2.7 thou/uL (1.4-8.2); BASOPHILS 0.7 % (0.0-2.0); EOSINOPHILS 2.8 % (0.0-3.0); HEMATOCRIT 37.9 % (37.0-47.0); HEMOGLOBIN 12.4 gm/dL (12.0-15.0); MCH 25.4 pg (26.0-34.0); MCHC 32.6 g/dL (28.0-37.0); MCV 78.1 fL (80.0-100.0); MONOCYTES 7.4 % (1.0-8.0); PLATELET COUNT 144 thou/uL (150-400); POLYS 65.1 % (36.0-66.0); RBC 4.86 mil/uL (4.20-5.00); RDW 13.1 % (10.5-14.5); WBC 4.2 thou/uL (4.0-11.0)
[2020-11-15 07:21] LABS: ANION GAP 8 mmol/L (7-16); BUN 19 mg/dL (7-18); CALCIUM 9.8 mg/dL (8.5-10.1); CHLORIDE 105 mmol/L (98-107); CO2 29 mmol/L (21-32); CREATININE 1.3 mg/dL (0.6-1.0); GLUCOSE 101 mg/dL (74-106); POTASSIUM 3.5 mmol/L (3.5-5.1); SODIUM 142 mmol/L (136-145)
[2020-11-15 07:31] LABS: ALBUMIN 3.9 g/dL (3.4-5.0); SGOT 18 U/L (15-37); SGPT 25 U/L (30-65); TOTAL BILIRUBIN 0.7 mg/dL (0.2-1.0); TOTAL PROTEIN 7.1 g/dL (6.4-8.2); TROPONIN-I <0.06 ng/mL (<0.06)
[2020-11-15] MEDS ORDERED: ULTRAM 50MG TAB50 MG PO (10:19)
[2020-11-15 10:30] VITALS: BP 157/103
--- NOTE | 2020-11-15 11:35 | EKG ---
[place] [address] [facility] [place] [address] ELECTROCARDIOGRAM REPORT Name: OSCAR CONNER Room #: [facility]P [facility]ENTERJjJ[facility]#: [id number] Admission: 11/15/20 Attend Phys: Discharge: 11/15/20 Date of : 70 Report #: [id number] [facility] ED Test Date: 2020-11-15 Test Time: 06:40:14 Pat Name: OSCAR CONNER Department: Room: Gender: F [employer]: coby : 1970 Requested By: Delroy Bowers Order Number: [id number] MD: Seven Graves Measurements Intervals [place] Rate: 50 P: 38 AR: 168 QRS: -22 QRSD: 99 T: 10 QT: 436 QTc: 398 Interpretive Statements Sinus rhythm Borderline left axis deviation Compared to ECG 03/13/2020 10:40:25 Poor R-wave progression no longer present Electronically Signed On 11-15-2020 11:35:09 CDT by Seven Graves [email or web address] <ELECTRONICALLY SIGNED> By: Seven Graves MD, [facility] 11/15/20 1135 0640 0640 Seven Graves MD, FACC /EPI
== END 2020-11-15 10:30 | disposition home or self-care (01) ==
LOC: ER 06:31
PROVIDERS: Emergency Medicine
DX: R07.89 Other chest pain (principal); M54.6 Pain in thoracic spine; K21.9 Gastro-esophageal reflux disease without esophagitis; Z98.890 Other specified postprocedural states; Z79.899 Other long term (current) drug therapy; Z79.82 Long term (current) use of aspirin

== ENCOUNTER 2021-03-22 10:10 | Emergency (ER) | payer OTHER ==
[~2021-03-22] VITALS: Ht 175.3 cm; Wt 91.6 kg
[~2021-03-22 10:10] MED LIST changes: +GABAPENTIN600 M1 PO; +OMEPRAZOLE40 MG PO
[2021-03-22 10:49] LABS: URINE BILIRUBIN NEGATIVE (Negative); URINE BLOOD NEGATIVE (Negative); URINE CLARITY CLEAR; URINE COLOR YELLOW; URINE GLUCOSE-RANDOM* NEGATIVE (Negative); URINE KETONES NEGATIVE (Negative); URINE LEUKOCYTES-REFLEX 3+ (Negative); URINE NITRITE-REFLEX NEGATIVE (Negative); URINE PROTEIN (DIPSTICK) NEGATIVE (Negative); URINE SPECIFIC GRAVITY 1.015 (1.005-1.035); URINE UROBILINOGEN 0.2 E.U./dl (0.2-1.0)
[2021-03-22 11:16] LABS: ABSOLUTE NEUTROPHILS 2.9 thou/uL (1.4-8.2); BASOPHILS 0.5 % (0.0-2.0); EOSINOPHILS 1.2 % (0.0-3.0); HEMATOCRIT 36.4 % (37.0-47.0); HEMOGLOBIN 11.9 gm/dL (12.0-15.0); LYMPHOCYTES 24.2 % (24.0-44.0); MCH 25.9 pg (26.0-34.0); MCHC 32.8 g/dL (28.0-37.0); MCV 78.9 fL (80.0-100.0); MONOCYTES 6.5 % (1.0-8.0); PLATELET COUNT 151 thou/uL (150-400); POLYS 67.6 % (36.0-66.0); RBC 4.61 mil/uL (4.20-5.00); RDW 13.5 % (10.5-14.5); WBC 4.3 thou/uL (4.0-11.0)
[2021-03-22 11:20] LABS: HYALINE CASTS 0-3 Few /LPF (None Seen); SQUAMOUS >10 Many /LPF (0-3); URINE RBC None Seen /HPF (NONE SEEN); URINE WBC-REFLEX 6-15 Few /HPF (0-5)
[2021-03-22 11:21] LABS: BACTERIA-REFLEX 1-9 Few /HPF (None Seen); CRYSTALS None Seen /LPF (None Seen)
[2021-03-22 11:23] LABS: CALCIUM 9.4 mg/dL (8.5-10.1); CREATININE 1.2 mg/dL (0.6-1.0); POTASSIUM 3.7 mmol/L (3.5-5.1)
[2021-03-22] MEDS ORDERED: CEFPODOXIME PR200 M1 PO (12:39)
[2021-03-22 12:40] VITALS: BP 109/73
[2021-03-22] MEDS ORDERED: TRAMADOL 50 MG50 MG PO (12:45)
== END 2021-03-22 12:40 | disposition home or self-care (01) ==
LOC: ER 10:10
PROVIDERS: Student in an Organized Health Care Education/Training Program
DX: N39.0 Urinary tract infection, site not specified (principal); K21.9 Gastro-esophageal reflux disease without esophagitis; Z98.890 Other specified postprocedural states